=== PATIENT | male | born 2000 | race Caucasian/White ===

== ENCOUNTER 2024-09-24 21:13 | Emergency (ER) | payer OTHER ==
[~2024-09-24] VITALS: Ht 177.8 cm; Wt 105.0 kg
[2024-09-24 21:15] VITALS: O2SAT 99
[2024-09-24 21:22] VITALS: BP 141/91; PULSE 76; RESP 18; TEMP 37.1; O2SAT 99
== END 2024-09-24 22:00 | disposition left against medical advice (07) ==
LOC: ER 21:13
DX: R00.0 Tachycardia, unspecified (principal); Z53.21 Procedure and treatment not carried out due to patient leaving prior to being seen by health care provider
CPT/HCPCS: 93005